=== PATIENT | female | born 1995 | race Two or more races ===

== ENCOUNTER 2022-06-06 00:42 | Emergency (ER) | payer MEDICAID ==
[2022-06-06] MEDS ORDERED: Diphtheria,Pertussis(Acell),Tetanus Vaccine 0.5 ML Syringe IM ONE (01:39)
[2022-06-06] MEDS ORDERED: Lidocaine 1% 10 ML MDV INJECT ONE (01:39)
== END 2022-06-06 03:28 | disposition home or self-care (01) ==
LOC: JD.ED 00:42
DX: S61.213A Laceration without foreign body of left middle finger without damage to nail, initial encounter (principal); S61.215A Laceration without foreign body of left ring finger without damage to nail, initial encounter; F17.210 Nicotine dependence, cigarettes, uncomplicated; Z23 Encounter for immunization; Z88.0 Allergy status to penicillin; W26.0XXA Contact with knife, initial encounter
CPT/HCPCS: 12002; 90471; 90715; 99283-25